=== PATIENT | male | born 1955 | race Caucasian/White ===

== ENCOUNTER → 2016-05-28 | Outpatient (CLI) | payer OTHER ==
[~2016-05-28] MED LIST: REGADENOSON 0.4 MG/5 ML SYRINGE IV ONE
--- NOTE | 2016-05-28 09:27 | US ---
EXAMINATION TYPE: US venous doppler duplex LE LT DATE OF EXAM: 05/28/2016 8:44 AM COMPARISON: NONE CLINICAL HISTORY: 60-year-old male I82.52 chronic thromboembolic disease. Patient on blood thinner, p ain and edema left leg, history of left leg bypass surgery SIDE PERFORMED: left TECHNIQUE: The lower extremity deep venous system is examined utilizing real time linear array sonog farideh with graded compression, doppler sonography and color-flow sonography. FINDINGS: VESSELS IMAGED: External Iliac Vein (EIV) Common Femoral Vein Deep Femoral Vein Greater Saphenous Vein * Femoral Vein Popliteal Vein Small Saphenous Vein * (* superficial vessels) Left Leg: No evidence of acute DVT IMPRESSION: No evidence for DVT within the left lower extremity imaged from the groin to the knee.
--- NOTE | 2016-05-28 11:24 | EST ---
DATE OF SERVICE: 05/28/2016 AGE: 60Y SEX: M HT: 6'1" WT: 210 lbs. Protocol Nain: Other: Lexiscan Cardiolite Stage: Dur. of Exercise: *Heart Rate Blood Pressure *Rest: 59 Rest: 112/81 * *Max. Achieved: 93 Maximum BP: 139/178 85% PMHR: 136 100% PMHR: 160 *METS: INDICATIONS: Chest pain, short of breath. MEDICATIONS: CLINICAL INFORMATION: Chest pain, hypertension, shortness of breath, history of smoking 1-1/2 packs of cigarettes a day for 48 years. Resting ECG shows sinus rhythm, rate of 59 beats per minute, SD interval 0.16, QRS of 0.08, normal ST-T waves. Utilizing a standard Lexiscan protocol, Lexiscan was given IV push followed by serial EKGs without chest pain or pressure or ST segment deviations indicative of ischemia. IMPRESSION: 1. Baseline rhythm is sinus with normal SD interval, normal QRS, normal ST-T waves. 2. Negative Lexiscan Cardiolite study. 3. Nuclear scintigrams to follow from radiology department.
--- NOTE | 2016-05-28 13:01 | NM ---
EXAMINATION TYPE: NM stress lexiscan cardiolite DATE OF EXAM: 05/28/2016 11:23 AM COMPARISON: NONE HISTORY: 60-year-old male with chest pain TECHNIQUE: After the intravenous administration of 10.4 mCi Tc 99m Sestamibi - Cardiolite resting SP ECT images acquired 45 minutes post injection. The patient received 0.4mg Lexiscan, 27.3 mCi Tc 99m Sestamibi - Stress images obtained [address] injection FINDINGS: Review of stress and rest SPECT images demonstrates a small fixed defect along the cardiac apex. Perf usion abnormality is larger on the rest images with defect extending to involve the mid to apical inf erior wall. This suggests attenuation artifact. No suspicious reversibility is seen. Gated analysis s hows estimated left ventricular ejection fraction of 57 %. T I D is calculated at 0.97, within normal limits. IMPRESSION: Possible small old infarct along the cardiac apex. There is prominent attenuation artifact along the inferior wall as the perfusion abnormality is more pronounced on rest images. No definite suspicious areas of reversibility seen.
== END | disposition home or self-care (01) ==
LOC: RADUSMAIN 08:07
PROVIDERS: ATTEND Family Medicine
DX: R91.8 Other nonspecific abnormal finding of lung field (principal); I82.522 Chronic embolism and thrombosis of left iliac vein; R07.9 Chest pain, unspecified
CPT/HCPCS: 93017; 93971; 78452; A9500; J2785

== ENCOUNTER → 2016-07-26 | Outpatient (CLI) | payer OTHER ==
--- NOTE | 2016-07-26 14:00 | XR ---
EXAMINATION TYPE: XR chest 2V DATE OF EXAM: 07/26/2016 COMPARISON: Chest x-ray December 22, 2011 HISTORY: Cough for 3 years. TECHNIQUE: Frontal and lateral views of the chest are obtained. FINDINGS: Underlying emphysematous change with scattered scarring is present. There is no focal air space opacity, pleural effusion, or pneumothorax seen. The cardiac silhouette size is within normal limits. Anterior fusion plate lower cervical spine is seen. IMPRESSION: Chronic changes without suspicious acute infiltrate.
== END | disposition home or self-care (01) ==
LOC: RADXRMAIN 13:42
PROVIDERS: ATTEND Physician Assistant
DX: J98.4 Other disorders of lung (principal); R05 Cough
CPT/HCPCS: 71020

== ENCOUNTER → 2018-03-03 | Outpatient (CLI) | payer OTHER ==
--- NOTE | 2018-03-03 12:37 | CT ---
EXAMINATION TYPE: CT chest w con DATE OF EXAM: 03/03/2018 COMPARISON: None HISTORY: COPD. CT DLP: 584 mGycm, Automated exposure control for dose reduction was used. CONTRAST: Performed injected with 100ml mL of Isovue 300. TECHNIQUE: Axial images were obtained at 5 mm thick sections. Reconstructed images are reviewed on [employer] computer in the coronal plane. FINDINGS: Portion of the thyroid visualized is normal. No suspicious lung nodules or focal infiltrates are present. Emphysematous changes are present especi ally through the upper lung long compatible with moderate emphysematous change. Some paraseptal emp hysematous change and/or pulmonary fibrosis may be present within the dependent portions of the lungs posteriorly. No enlarged mediastinal or hilar adenopathy is evident. There are a few shoddy lymph nodes present. The ascending aorta diameter at the level of the main pulmonary artery is 3.4 cm. The main pulmonar y artery diameter at the bifurcation is 2.2 cm. Some mild coronary artery calcification is not exclud ed. Limited CT sections are obtained through the upper abdomen. A 0.8 cm hypodensity is within the medial left lobe liver too small to classify. IMPRESSIONS: 1. Findings compatible COPD.
== END | disposition home or self-care (01) ==
LOC: RADCTMAIN 11:44
PROVIDERS: ATTEND Family Medicine
DX: J44.9 Chronic obstructive pulmonary disease, unspecified (principal)
CPT/HCPCS: 71260; Q9967

== ENCOUNTER 2018-03-15 11:22 | Observation (INO) | payer OTHER ==
[2018-03-15] MEDS ORDERED: ALBUTEROL NEBULIZED 2.5 MG/3 ML INHALATION STA (11:32)
[2018-03-15] MEDS ORDERED: methylPREDNISolone SOD SUCCI 125 MG/2 ML VIAL IV STA (11:32)
[2018-03-15] MEDS ORDERED: IPRATROPIUM 0.5 MG/2.5 ML NEBU INHALATION STA (11:32)
--- NOTE | 2018-03-15 11:37 | ED ---
General Adult HPI - General Chief complaint: Shortness of Breath Stated complaint: SOB,LICHA Time Seen by Provider: 03/15/18 11:26 Source: patient, EMS, RN notes reviewed, old records reviewed Mode of arrival: EMS Limitations: physical limitation - History of Present Illness Initial comments: 62-year-old male history of COPD presenting with worsening cough and dyspnea. Patient states his cough is productive of yellow sputum. He states he's had subjective fever and chills over the past one week. His dyspnea has worsened over the course of one week as well. He has had some intermittent chest pain, worse with cough. He has remote history of DVT and pulmonary embolism and is currently on Coumadin. Denies any lower extremity swelling. Denies central radiating chest pain. Denies nausea vomiting or diarrhea. - Related Data Home Medications Medication Instructions Recorded Confirmed Simvastatin 20 mg PO HS 04/22/14 03/15/18 Warfarin Sodium 4 mg PO DAILY 04/22/14 03/15/18 Warfarin Sodium 5 mg PO DAILY 04/22/14 03/15/18 Albuterol Inhaler [Ventolin Hfa 1 - 2 puff INHALATION RT-Q6H PRN 09/15/15 Inhaler] Gabapentin [Neurontin] 800 mg PO TID 09/15/15 03/15/18 DULoxetine HCL [Cymbalta] 30 mg PO DAILY 03/15/18 03/15/18 hydrOXYzine HCL 10 mg PO HS PRN 03/15/18 03/15/18 oxyCODONE HCL/ACETAMINOPHEN 1 tab PO QID 03/15/18 03/15/18 [Percocet 10-325 mg] Allergies Allergy/AdvReac Type Severity Reaction Status Date / Time No Known Allergies Allergy Verified 03/15/18 11:48 Review of Systems ROS Statement: Those systems with pertinent positive or pertinent negative responses have been documented in the HPI. ROS Other: All systems not noted in ROS Statement are negative. Past Medical History Past Medical History: COPD, Deep Vein Thrombosis (DVT), Hyperlipidemia, Vascular Disorder Additional Past Medical History / Comment(s): HX DVT left leg. History of Any Multi-Drug Resistant Organisms: None Reported Past Surgical History: Ear Surgery, Orthopedic Surgery Additional Past Surgical History / Comment(s): LT EAR SURG; RT KNEE SURG; DRAKE CATARACTS. CERVICAL AND SPINAL FUSIONS. FEM-POP BYPASS LT LEG X2. Past Anesthesia/Blood Transfusion Reactions: No Reported Reaction Past Psychological History: Anxiety, Depression Smoking Status: Current every day smoker Past Alcohol Use History: None Reported Past Drug Use History: None Reported - Past Family History Mother Family Medical History: Cancer Additional Family Medical History / Comment(s): UTERINE CANCER General Exam Limitations: physical limitation General appearance: alert, in no apparent distress Head exam: Present: atraumatic, normocephalic Eye exam: Present: normal appearance, PERRL ENT exam: Present: normal exam Neck exam: Present: normal inspection. Absent: tenderness, meningismus Respiratory exam: Present: wheezes, decreased breath sounds, prolonged expiratory Cardiovascular Exam: Present: regular rate, normal rhythm GI/Abdominal exam: Present: soft. Absent: distended, tenderness Extremities exam: Present: normal inspection, normal capillary refill. Absent: pedal edema, calf tenderness Neurological exam: Present: alert, oriented X3, CN II-XII intact. Absent: motor sensory deficit Psychiatric exam: Present: normal affect, normal mood Skin exam: Present: warm, dry, intact. Absent: cyanosis, diaphoretic Course Vital Signs 03/15/18 03/15/18 03/15/18 11:23 11:53 12:10 Temperature 98.1 F Pulse Rate 55 L 53 L 56 L Respiratory 18 Rate Blood Pressure 120/87 O2 Sat by Pulse 96 Oximetry 03/15/18 12:11 Temperature Pulse Rate 70 Respiratory 18 Rate Blood Pressure 122/69 O2 Sat by Pulse 97 Oximetry EKG Findings - EKG Comments: EKG Findings:: EKG: Sinus bradycardia, rate 55, NH interval 144 QRS duration 82 , QTC 449, no ST segment elevation Medical Decision Making - Medical Decision Making 62-year-old male history COPD, presenting with cough and dyspnea for one week. Chest x-ray obtained, shows hyperinflation consistent with COPD, no focal pneumonia. CT was reviewed from one week ago, showed no acute cardiopulmonary process. Normal white blood cell count, stable hemoglobin, INR is 4.6, Coumadin will be held. Troponin and BNP are negative. Case discussed with Dr. Henson, admitted for COPD exacerbation. - Lab Data Result diagrams: 03/15/18 11:30 03/15/18 11:30 Lab Results 03/15/18 03/15/18 03/15/18 Range/Units 11:30 11:30 11:30 WBC 6.4 (3.8-10.6) k/uL RBC 4.20 L (4.30-5.90) m/uL Hgb 13.4 (13.0-17.5) gm/dL Hct 40.4 (39.0-53.0) % MCV 96.1 (80.0-100.0) fL MCH 32.0 (25.0-35.0) pg MCHC 33.3 (31.0-37.0) g/dL RDW 13.4 (11.5-15.5) % Plt Count 155 (150-450) k/uL Neutrophils % 57 % Lymphocytes % 33 % Monocytes % 6 % Eosinophils % 1 % Basophils % 0 % Neutrophils # 3.7 (1.3-7.7) k/uL Lymphocytes # 2.1 (1.0-4.8) k/uL Monocytes # 0.4 (0-1.0) k/uL Eosinophils # 0.1 (0-0.7) k/uL Basophils # 0.0 (0-0.2) k/uL PT (9.0-12.0) sec INR (<1.2) APTT (22.0-30.0) sec Sodium 141 (137-145) mmol/L Potassium 3.7 (3.5-5.1) mmol/L Chloride 108 H (98-107) mmol/L Carbon Dioxide 25 (22-30) mmol/L Anion Gap 8 mmol/L BUN 21 H (9-20) mg/dL Creatinine 0.78 (0.66-1.25) mg/dL Est GFR (CKD-EPI)AfAm >90 (>60 ml/min/1.73 sqM) Est GFR (CKD-EPI)NonAf >90 (>60 ml/min/1.73 sqM) Glucose 103 H (74-99) mg/dL Plasma Lactic Acid Robin (0.7-2.0) mmol/L Calcium 8.4 (8.4-10.2) mg/dL Magnesium 2.3 (1.6-2.3) mg/dL Total Bilirubin 1.0 (0.2-1.3) mg/dL AST 28 (17-59) U/L ALT 27 (21-72) U/L Alkaline Phosphatase 55 (38-126) U/L Total Creatine Kinase 344 H (55-170) U/L CK-MB (CK-2) 0.9 (0.0-2.4) ng/mL CK-MB (CK-2) Rel Index 0.3 Troponin I <0.012 (0.000-0.034) ng/mL NT-Pro-B Natriuret Pep pg/mL Total Protein 6.6 (6.3-8.2) g/dL Albumin 3.7 (3.5-5.0) g/dL 03/15/18 03/15/18 03/15/18 Range/Units 11:30 11:30 11:30 WBC (3.8-10.6) k/uL RBC (4.30-5.90) m/uL Hgb (13.0-17.5) gm/dL Hct (39.0-53.0) % MCV (80.0-100.0) fL MCH (25.0-35.0) pg MCHC (31.0-37.0) g/dL RDW (11.5-15.5) % Plt Count (150-450) k/uL Neutrophils % % Lymphocytes % % Monocytes % % Eosinophils % % Basophils % % Neutrophils # (1.3-7.7) k/uL Lymphocytes # (1.0-4.8) k/uL Monocytes # (0-1.0) k/uL Eosinophils # (0-0.7) k/uL Basophils # (0-0.2) k/uL PT 44.6 H (9.0-12.0) sec INR 4.6 H (<1.2) APTT 40.7 H (22.0-30.0) sec Sodium (137-145) mmol/L Potassium (3.5-5.1) mmol/L Chloride (98-107) mmol/L Carbon Dioxide (22-30) mmol/L Anion Gap mmol/L BUN (9-20) mg/dL Creatinine (0.66-1.25) mg/dL Est GFR (CKD-EPI)AfAm (>60 ml/min/1.73 sqM) Est GFR (CKD-EPI)NonAf (>60 ml/min/1.73 sqM) Glucose (74-99) mg/dL Plasma Lactic Acid Robin 1.6 (0.7-2.0) mmol/L Calcium (8.4-10.2) mg/dL Magnesium (1.6-2.3) mg/dL Total Bilirubin (0.2-1.3) mg/dL AST (17-59) U/L ALT (21-72) U/L Alkaline Phosphatase (38-126) U/L Total Creatine Kinase (55-170) U/L CK-MB (CK-2) (0.0-2.4) ng/mL CK-MB (CK-2) Rel Index Troponin I (0.000-0.034) ng/mL NT-Pro-B Natriuret Pep 169 pg/mL Total Protein (6.3-8.2) g/dL Albumin (3.5-5.0) g/dL Disposition Clinical Impression: Acute exacerbation of chronic obstructive airways disease Disposition: ADMITTED IP TO THIS HOSP Condition: Stable Is patient prescribed a controlled substance at d/c from ED?: No Referrals: Mariluz Rainey DO [Primary Care Provider] - 1-2 days Decision to Admit Reason: Admit from EC Decision Date: 03/15/18 Decision Time: 13:25
[2018-03-15 11:53] LABS: Basophils % (A) 0 %; Eosinophils # (A) 0.1 k/uL (0-0.7); Eosinophils % (A) 1 %; HCT 40.4 % (39.0-53.0); HGB 13.4 gm/dL (13.0-17.5); Lymphocytes # (A) 2.1 k/uL (1.0-4.8); Lymphocytes % (A) 33 %; MCHC 33.3 g/dL (31.0-37.0); MCV 96.1 fL (80.0-100.0); Mean Platelet Volume 9.1; Monocytes # (A) 0.4 k/uL (0-1.0); Monocytes % (A) 6 %; Neutrophils # (A) 3.7 k/uL (1.3-7.7); Neutrophils % (A) 57 %; Platelet Count 155 k/uL (150-450); RDW 13.4 % (11.5-15.5); WBC 6.4 k/uL (3.8-10.6)
[2018-03-15 12:03] LABS: ALT 27 U/L (21-72); AST 28 U/L (17-59); Albumin 3.7 g/dL (3.5-5.0); Alkaline Phosphatase 55 U/L (38-126); Anion Gap 8 mmol/L; Blood Urea Nitrogen 21 mg/dL (9-20); Calcium 8.4 mg/dL (8.4-10.2); Carbon Dioxide 25 mmol/L (22-30); Chloride 108 mmol/L (98-107); Glucose 103 mg/dL (74-99); Magnesium 2.3 mg/dL (1.6-2.3); Potassium 3.7 mmol/L (3.5-5.1); Sodium 141 mmol/L (137-145); Total Protein 6.6 g/dL (6.3-8.2)
[2018-03-15 12:14] LABS: Creatine Kinase 344 U/L (55-170)
[2018-03-15 12:17] LABS: INR 4.6 (<1.2); Partial Thromboplastin Time 40.7 sec (22.0-30.0); Prothrombin Time 44.6 sec (9.0-12.0)
--- NOTE | 2018-03-15 12:26 | XR ---
EXAMINATION TYPE: XR chest 2V DATE OF EXAM: 03/15/2018 COMPARISON: 07/26/2016 HISTORY: Shortness of breath TECHNIQUE: Frontal and lateral views of the chest are obtained. FINDINGS: Scattered senescent parenchymal changes noted. Hyperinflation compatible with COPD. Upper lobe emphys ematous changes noted. No evidence for infiltrate. No evidence for atelectasis. Heart size is stable. Mediastinal structures are stable and grossly unremarkable. No evidence for hilar prominence. Degenerative changes dorsal spine. IMPRESSION: 1. No evidence for acute pulmonary disease.
[2018-03-15 12:27] LABS: Creatine Kinase MB 0.9 ng/mL (0.0-2.4); Troponin I <0.012 ng/mL (0.000-0.034)
[2018-03-15] MEDS ORDERED: IPRATROPIUM-ALBUTEROL 3 ML NEB INHALATION PRN (13:19)
[2018-03-15] MEDS ORDERED: GABAPENTIN 400 MG CAP PO STA (13:39)
[2018-03-15] MEDS ORDERED: oxyCODONE-APAP 5-325MG 1 EACH TAB PO STA (13:39)
[2018-03-15] MEDS: AZITHROMYCIN 500 MG TAB PO SCH (14:24)
--- NOTE | 2018-03-15 15:02 | P.HPIM ---
History of Present Illness H&P Date: 03/15/18 Felice Chang, he is a 62-year-old male patient of Dr. Mariluz Rainey who presented to [facility] emergency room with a chief complaint of worsening shortness of breath. Patient stated that about 1 week ago he developed an upper respiratory infection, he stayed in bed and try to medicate himself, he developed worsening cough with yellow sputum production, and started having worsening shortness of breath, he decided to see Dr. Rainey today however his shortness of breath worsened and he decided to come to emergency room. Patient was also complaining of chest tightness. Patient states that he has a known history of COPD for which she uses an inhaler , he is a lifelong smoker, he states that he has not seen any lung doctor in the past, he has known history of DVT and pulmonary embolism in the past, he is maintained on Coumadin, his INR was elevated at 4.6 at the time of admission. He denies any cardiac history in the past no history of myocardial infarction or congestive heart. He denies any previous history of diabetes kidney disease or liver disease. He denies drinking alcohol or using any kind of illicit drugs. Past Medical History Past Medical History: COPD, Deep Vein Thrombosis (DVT), Hyperlipidemia, Vascular Disorder Additional Past Medical History / Comment(s): HX DVT left leg. History of Any Multi-Drug Resistant Organisms: None Reported Past Surgical History: Ear Surgery, Orthopedic Surgery Additional Past Surgical History / Comment(s): LT EAR SURG; RT KNEE SURG; DRAKE CATARACTS. CERVICAL AND SPINAL FUSIONS. FEM-POP BYPASS LT LEG X2. Past Anesthesia/Blood Transfusion Reactions: No Reported Reaction Past Psychological History: Anxiety, Depression Smoking Status: Current every day smoker Past Alcohol Use History: None Reported Past Drug Use History: None Reported - Past Family History Mother Family Medical History: Cancer Additional Family Medical History / Comment(s): UTERINE CANCER Medications and Allergies Home Medications Medication Instructions Recorded Confirmed Type Simvastatin 20 mg PO HS 04/22/14 03/15/18 History Warfarin Sodium 4 mg PO DAILY 04/22/14 03/15/18 History Warfarin Sodium 5 mg PO DAILY 04/22/14 03/15/18 History Albuterol Inhaler [Ventolin Hfa 1 - 2 puff INHALATION RT-Q6H PRN 09/15/15 History Inhaler] Gabapentin [Neurontin] 800 mg PO TID 09/15/15 03/15/18 History DULoxetine HCL [Cymbalta] 30 mg PO DAILY 03/15/18 03/15/18 History hydrOXYzine HCL 10 mg PO HS PRN 03/15/18 03/15/18 History oxyCODONE HCL/ACETAMINOPHEN 1 tab PO QID 03/15/18 03/15/18 History [Percocet 10-325 mg] Allergies Allergy/AdvReac Type Severity Reaction Status Date / Time No Known Allergies Allergy Verified 03/15/18 11:48 Physical Exam Vitals: Vital Signs Temp Pulse Resp BP Pulse Ox 03/15/18 14:25 66 18 125/74 97 03/15/18 13:34 97.8 F 65 20 130/81 96 03/15/18 12:11 70 18 122/69 97 03/15/18 12:10 56 L 03/15/18 11:53 53 L 03/15/18 11:23 98.1 F 55 L 18 120/87 96 Intake and Output 03/14/18 03/15/18 03/15/18 22:59 06:59 14:59 Other: Weight 86.183 kg In general patient is alert and oriented 3 in no apparent distress HEENT head normocephalic and atraumatic Neck is supple no JVD no goiter no lymphadenopathy Chest exam reveals a scattered crackles bilaterally, with mild wheezing and prolonged expiratory phase Cardiac exam reveals regular heart sounds S1 and S2 no gallops no murmurs Abdomen is soft nontender no organomegaly with normal bowel sounds Extremity exam reveals no edema no cyanosis or clubbing Neurological examination reveals no focal deficit Results CBC & Chem 7: 03/15/18 11:30 03/15/18 11:30 Labs: Abnormal Lab Results - Last 24 Hours (Table) 03/15/18 03/15/18 03/15/18 Range/Units 11:30 11:30 11:30 RBC 4.20 L (4.30-5.90) m/uL PT (9.0-12.0) sec INR (<1.2) APTT (22.0-30.0) sec Chloride 108 H (98-107) mmol/L BUN 21 H (9-20) mg/dL Glucose 103 H (74-99) mg/dL Total Creatine Kinase 344 H (55-170) U/L 03/15/18 Range/Units 11:30 RBC (4.30-5.90) m/uL PT 44.6 H (9.0-12.0) sec INR 4.6 H (<1.2) APTT 40.7 H (22.0-30.0) sec Chloride (98-107) mmol/L BUN (9-20) mg/dL Glucose (74-99) mg/dL Total Creatine Kinase (55-170) U/L Assessment and Plan Plan: #1 acute exacerbation of chronic obstructive pulmonary disease #2 acute purulent bronchitis #3 episodes of chest tightness, with normal EKG and normal first troponin #4 underlying history of degenerative disc disease was previous history of back surgery maintained on narcotic for pain management #5 underlying history of hyperlipidemia #6 previous history of DVT and PE patient is maintained on Coumadin his INR is elevated at 4.6 #7 tobacco abuse patient was counseled regarding smoking cessation counseling 1- 3 minutes #8 underlying history of peripheral vascular disease with previous history of left lower extremity femoral popliteal bypass graft surgery At this time patient will be admitted to telemetry floor Will consult pulmonary , consult cardiology [place] [facility] [place] levels Prognosis is guarded, will follow closely
[2018-03-15] MEDS ORDERED: PNEUMOCOCCAL VACC-PNEUMOVAX 23 25 MCG/0.5 ML VIAL IM ONE (15:06)
[2018-03-15] MEDS: IPRATROPIUM-ALBUTEROL 3 ML NEB INHALATION SCH ×2 (15:33→21:33)
[2018-03-15] MEDS: methylPREDNISolone SOD SUCCI 125 MG/2 ML VIAL IV SCH ×2 (17:58→23:42)
[2018-03-15] MEDS ORDERED: hydrOXYzine HCL 10 MG TAB PO PRN (19:44)
[2018-03-15] MEDS: ATORVASTATIN 10 MG TAB PO SCH (20:48)
[2018-03-15] MEDS: guaiFENesin 600 MG TABLET.ER PO SCH (20:50)
[2018-03-15] MEDS: oxyCODONE-APAP 10-325MG 1 EACH TAB PO PRN (20:50)
[2018-03-15] MEDS: GABAPENTIN 400 MG CAP PO SCH (20:50)
[2018-03-15] MEDS ORDERED: ALBUTEROL NEBULIZED 2.5 MG/3 ML INHALATION PRN (21:00)
[2018-03-16] MEDS: oxyCODONE-APAP 10-325MG 1 EACH TAB PO PRN ×4 (03:27→21:15)
[2018-03-16] MEDS: methylPREDNISolone SOD SUCCI 125 MG/2 ML VIAL IV SCH ×3 (05:47→18:52)
[2018-03-16 08:04] LABS: Basophils % (A) 0 %; Eosinophils % (A) 0 %; HCT 37.7 % (39.0-53.0); HGB 12.3 gm/dL (13.0-17.5); Lymphocytes # (A) 0.9 k/uL (1.0-4.8); Lymphocytes % (A) 11 %; MCH 31.8 pg (25.0-35.0); MCHC 32.6 g/dL (31.0-37.0); MCV 97.3 fL (80.0-100.0); Mean Platelet Volume 9.3; Monocytes # (A) 0.3 k/uL (0-1.0); Monocytes % (A) 4 %; Neutrophils # (A) 6.7 k/uL (1.3-7.7); Neutrophils % (A) 84 %; Platelet Count 175 k/uL (150-450); RBC 3.87 m/uL (4.30-5.90); RDW 13.5 % (11.5-15.5)
[2018-03-16 08:08] LABS: INR 4.4 (<1.2); Prothrombin Time 42.5 sec (9.0-12.0)
[2018-03-16] MEDS ORDERED: cefTRIAXone 1 GM VIAL ONE (08:12)
[2018-03-16] MEDS ORDERED: SODIUM CHLORIDE 0.9% 50 ML BAG ONE (08:12)
[2018-03-16 08:35] LABS: ALT 17 U/L (21-72); AST 23 U/L (17-59); Albumin 3.5 g/dL (3.5-5.0); Alkaline Phosphatase 51 U/L (38-126); Anion Gap 11 mmol/L; Blood Urea Nitrogen 15 mg/dL (9-20); Calcium 8.6 mg/dL (8.4-10.2); Carbon Dioxide 23 mmol/L (22-30); Chloride 104 mmol/L (98-107); Glucose 210 mg/dL (74-99); Potassium 3.6 mmol/L (3.5-5.1); Sodium 138 mmol/L (137-145); Total Bilirubin 0.5 mg/dL (0.2-1.3); Total Protein 6.2 g/dL (6.3-8.2)
[2018-03-16] MEDS: IPRATROPIUM-ALBUTEROL 3 ML NEB INHALATION SCH ×4 (09:08→20:27)
[2018-03-16] MEDS: GABAPENTIN 400 MG CAP PO SCH ×3 (09:51→21:15)
[2018-03-16] MEDS: AZITHROMYCIN 500 MG TAB PO SCH (10:05)
[2018-03-16] MEDS: DULoxetine HCL 30 MG CAPSULE.DR PO SCH (10:06)
[2018-03-16] MEDS: guaiFENesin 600 MG TABLET.ER PO SCH ×2 (10:09→21:14)
--- NOTE | 2018-03-16 10:35 | P.PN ---
Subjective Progress Note Date: 03/16/18 Felice Chang, he is a 62-year-old male patient of Dr. Mariluz Rainey who presented to [facility] emergency room with a chief complaint of worsening shortness of breath. Patient stated that about 1 week ago he developed an upper respiratory infection, he stayed in bed and try to medicate himself, he developed worsening cough with yellow sputum production, and started having worsening shortness of breath, he decided to see Dr. Rainey today however his shortness of breath worsened and he decided to come to emergency room. Patient was also complaining of chest tightness. Patient states that he has a known history of COPD for which she uses an inhaler , he is a lifelong smoker, he states that he has not seen any lung doctor in the past, he has known history of DVT and pulmonary embolism in the past, he is maintained on Coumadin, his INR was elevated at 4.6 at the time of admission. He denies any cardiac history in the past no history of myocardial infarction or congestive heart. He denies any previous history of diabetes kidney disease or liver disease. He denies drinking alcohol or using any kind of illicit drugs. 03/16/2017 patient is alert and oriented 3. Patient does state improvement with shortness of breath from yesterday. At this time patient is still having cough that is nonproductive. Patient denies nausea or vomiting. Patient denies chest pain. Patient denies any urinary burning or frequency. Pulmonary and cardiology services are following. Objective - Vital Signs Vital signs: Vital Signs Temp 97.6 F 03/16/18 08:41 Pulse 62 03/16/18 09:24 Resp 16 03/16/18 08:41 BP 123/72 03/16/18 08:41 Pulse Ox 98 03/16/18 08:41 Intake & Output 03/15/18 03/16/18 03/16/18 18:59 06:59 18:59 Intake Total 660 Balance 660 Weight 86.183 kg Intake: Oral 660 Other: # Voids 2 - Exam In general patient is alert and oriented 3 in no apparent distress HEENT head normocephalic and atraumatic Neck is supple no JVD no goiter no lymphadenopathy Chest exam reveals a scattered crackles bilaterally, with mild wheezing and prolonged expiratory phase Cardiac exam reveals regular heart sounds S1 and S2 no gallops no murmurs Abdomen is soft nontender no organomegaly with normal bowel sounds Extremity exam reveals no edema no cyanosis or clubbing Neurological examination reveals no focal deficit - Labs CBC & Chem 7: 03/16/18 07:12 03/16/18 07:12 Labs: Abnormal Lab Results - Last 24 Hours (Table) 03/15/18 03/15/18 03/15/18 Range/Units 11:30 11:30 11:30 RBC 4.20 L (4.30-5.90) m/uL Hgb (13.0-17.5) gm/dL Hct (39.0-53.0) % Lymphocytes # (1.0-4.8) k/uL PT (9.0-12.0) sec INR (<1.2) APTT (22.0-30.0) sec Chloride 108 H (98-107) mmol/L BUN 21 H (9-20) mg/dL Glucose 103 H (74-99) mg/dL ALT (21-72) U/L Total Creatine Kinase 344 H (55-170) U/L Total Protein (6.3-8.2) g/dL 03/15/18 03/16/18 03/16/18 Range/Units 11:30 07:12 07:12 RBC 3.87 L (4.30-5.90) m/uL Hgb 12.3 L (13.0-17.5) gm/dL Hct 37.7 L (39.0-53.0) % Lymphocytes # 0.9 L (1.0-4.8) k/uL PT 44.6 H 42.5 H (9.0-12.0) sec INR 4.6 H 4.4 H (<1.2) APTT 40.7 H (22.0-30.0) sec Chloride (98-107) mmol/L BUN (9-20) mg/dL Glucose (74-99) mg/dL ALT (21-72) U/L Total Creatine Kinase (55-170) U/L Total Protein (6.3-8.2) g/dL 03/16/18 Range/Units 07:12 RBC (4.30-5.90) m/uL Hgb (13.0-17.5) gm/dL Hct (39.0-53.0) % Lymphocytes # (1.0-4.8) k/uL PT (9.0-12.0) sec INR (<1.2) APTT (22.0-30.0) sec Chloride (98-107) mmol/L BUN (9-20) mg/dL Glucose 210 H (74-99) mg/dL ALT 17 L (21-72) U/L Total Creatine Kinase (55-170) U/L Total Protein 6.2 L (6.3-8.2) g/dL Assessment and Plan Assessment: #1 acute exacerbation of chronic obstructive pulmonary disease #2 acute purulent bronchitis #3 episodes of chest tightness, with normal EKG and normal first troponin #4 underlying history of degenerative disc disease was previous history of back surgery maintained on narcotic for pain management #5 underlying history of hyperlipidemia #6 previous history of DVT and PE patient is maintained on Coumadin his INR is elevated at 4.6 #7 tobacco abuse patient was counseled regarding smoking cessation counseling 1- 3 minutes #8 underlying history of peripheral vascular disease with previous history of left lower extremity femoral popliteal bypass graft surgery Patient currently on Rocephin and azithromycin. IV Solu-Medrol, DuoNeb breathing treatments and Mucinex. Cardiology and pulmonary service is consulted INR remains elevated at 4.4. Coumadin currently on hold
[2018-03-16 11:32] LABS: Glucose,Whole Blood 247 mg/dL (75-99)
--- NOTE | 2018-03-16 11:51 | P.CRDCN ---
History of Present Illness History of present illness: This is a pleasant 62-year-old male past medical history significant for COPD, DVT on long-term anticoagulation, dyslipidemia, chronic nicotine dependence and peripheral vascular disease. He denies history of hypertension, diabetes mellitus or coronary artery disease. We have been asked to see him in consultation for chest pain. He presented to the hospital yesterday morning with symptoms of shortness of breath and productive cough times one week. He states he is bringing up significant amount of yellow sputum. He also describes pleuritic chest discomfort when he coughs or takes a deep breath. He denies exertional chest discomfort, palpitations or dizziness. He denies radiation of the pain to his back, neck, jaw or arm. He is seen and examined laying flat resting comfortably in bed in no acute distress. He has been diagnosed with an acute exacerbation of chronic COPD started on antibiotics, nebulizers and IV steroids. EKG reveals sinus bradycardia heart rate [address] or T wave abnormalities noted. Chest x-ray is negative for an acute cardiopulmonary process. Hyperinflation compatible with COPD noted. Upper lobe emphysematous changes. Laboratory data reviewed, WBC 8.0, hemoglobin 12.3, platelets 175, INR 4.6 on admission 4.4 this morning, sodium 138, potassium 3.6, creatinine 0.73, magnesium 2.3, cardiac enzymes negative 3, NT proBNP 169. Current cardiac medications include simvastatin 20 mg daily and Coumadin 4 mg Tuesday and 2.5 mg Tuesday. He underwent a Lexiscan stress test May 2016 revealed ejection fraction 57% with a prominent attenuation artifact along the inferior wall with no definitive suspicious areas of reversibility. At the time of my exam: CONSTITUTIONAL: Denies fever. Denies chills. EYES: Denies blurred vision. Denies vision changes. Denies eye pain. EARS, NOSE, MOUTH & THROAT: Denies headache. Denies sore throat. Denies ear pain. CARDIOVASCULAR: Denies chest pain. Denies shortness of breath. Denies orthopnea. Denies PND. Denies palpitations. RESPIRATORY: Complains of cough. GASTROINTESTINAL: Denies abdominal pain. Denies diarrhea. Denies constipation. Denies nausea. Denies vomiting. MUSCULOSKELETAL: Denies myalgias. INTEGUMENTARY: Denies pruitis. Denies rash. NEUROLOGIC: Denies numbness. Denies tingling. Denies weakness. PSYCHIATRIC: Denies anxiety. Denies depression. ENDOCRINE: Denies fatigue. Denies weight change. Denies polydipsia. Denies polyurina. GENITOURINARY: Denies burning, hematuria or urgency with micturation. HEMATOLOGIC: Denies history of anemia. Denies bleeding. Blood pressure 118/61 heart rate 63 afebrile maintaining oxygen saturation on room air GENERAL: This is a 62-year-old male in no apparent distress at the time of my examination. HEENT: Head is atraumatic, normocephalic. Pupils are equal, round. Sclerae anicteric. Conjunctivae are clear. Mucous membranes of the mouth are moist. Neck is supple. There is no jugular venous distention. No carotid bruit is heard. LUNGS: Clear to auscultation no wheezes, rales or rhonchi. No chest wall tenderness is noted on palpation or with deep breathing. Diminished bilaterally. HEART: Regular rate and rhythm without murmurs, rubs or gallops. S1 and S2 heard. ABDOMEN: Soft, nontender. Bowel sounds are heard. No organomegaly noted. EXTREMITIES: No evidence of peripheral edema and no calf tenderness noted. VASCULAR: Radial and dorsalis pedis pulses palpated, no evidence of clubbing. NEUROLOGIC: Patient is awake, alert and oriented x3. ASSESSMENT Pleuritic chest pain. Atypical for angina. An acute coronary event has been ruled out with no EKG evidence of ischemia negative cardiac enzymes. Acute exacerbation of chronic COPD Dyslipidemia History of DVT on long-term anticoagulation with Coumadin Supratherapeutic INR Chronic nicotine dependence PLAN An acute coronary event has been ruled out. Obtain 2-D echocardiogram and Doppler study to assess cardiac structure and function. If there is normal LV size and function with no evidence of wall motion abnormalities he is stable from a cardiac perspective. Hold Coumadin for supratherapeutic INR. Clinically there is no evidence of heart failure. Ongoing medical management of acute exacerbation of COPD. Smoking cessation recommended. Thank you kindly for this consultation. The above impression and plan of care have been discussed and directed by the signing physician. Verónica Francis, nurse practitioner, acting as scribe for signing physician. Past Medical History Past Medical History: COPD, Deep Vein Thrombosis (DVT), Hyperlipidemia, Vascular Disorder Additional Past Medical History / Comment(s): HX DVT left leg. History of Any Multi-Drug Resistant Organisms: None Reported Past Surgical History: Ear Surgery, Orthopedic Surgery Additional Past Surgical History / Comment(s): LT EAR SURG; RT KNEE SURG; DRAKE CATARACTS. CERVICAL AND SPINAL FUSIONS. FEM-POP BYPASS LT LEG X2. Past Anesthesia/Blood Transfusion Reactions: No Reported Reaction Past Psychological History: Anxiety, Depression Smoking Status: Current every day smoker Past Alcohol Use History: None Reported Past Drug Use History: None Reported - Past Family History Mother Family Medical History: Cancer Additional Family Medical History / Comment(s): UTERINE CANCER Father Family Medical History: Pneumonia Additional Family Medical History / Comment(s): Gastric ulcer Medications and Allergies Home Medications Medication Instructions Recorded Confirmed Type Simvastatin 20 mg PO HS 04/22/14 03/15/18 History Warfarin Sodium 2.5 mg PO SUFRSA 04/22/14 03/15/18 History Warfarin Sodium 4 mg PO MOTUWETH 04/22/14 03/15/18 History Albuterol Inhaler [Ventolin Hfa 1 - 2 puff INHALATION RT-Q6H PRN 09/15/15 History Inhaler] Gabapentin [Neurontin] 800 mg PO TID 09/15/15 03/15/18 History DULoxetine HCL [Cymbalta] 30 mg PO DAILY 03/15/18 03/15/18 History hydrOXYzine HCL 10 mg PO HS PRN 03/15/18 03/15/18 History oxyCODONE HCL/ACETAMINOPHEN 1 tab PO QID 03/15/18 03/15/18 History [Percocet 10-325 mg] Allergies Allergy/AdvReac Type Severity Reaction Status Date / Time No Known Allergies Allergy Verified 03/15/18 11:48 Physical Exam Vitals: Vital Signs Temp Pulse Pulse Resp BP BP Pulse Ox 03/16/18 11:33 97.0 F L 63 16 118/61 96 03/16/18 09:24 62 03/16/18 09:08 62 03/16/18 08:41 97.6 F 52 L 16 123/72 98 03/16/18 08:00 52 L 03/16/18 05:02 97.6 F 54 L 18 122/67 98 03/16/18 00:00 43 L 18 03/15/18 22:24 97.8 F 62 18 114/64 99 03/15/18 21:50 60 03/15/18 21:34 54 L 97 03/15/18 17:11 98 F 16 123/65 98 03/15/18 16:13 98.5 F 75 18 113/75 96 03/15/18 15:43 70 16 03/15/18 15:34 77 18 03/15/18 14:25 66 18 125/74 97 03/15/18 13:34 97.8 F 65 20 130/81 96 03/15/18 12:11 70 18 122/69 97 03/15/18 12:10 56 L 03/15/18 11:53 53 L Intake and Output 03/15/18 03/16/18 03/16/18 22:59 06:59 14:59 Intake Total 420 240 Balance 420 240 Intake: Oral 420 240 Other: # Voids 2 Results 03/16/18 07:12 03/16/18 07:12 Cardiac Enzymes 03/15/18 03/15/18 03/15/18 Range/Units 11:30 11:30 18:06 AST 28 (17-59) U/L CK-MB (CK-2) 0.9 (0.0-2.4) ng/mL Troponin I <0.012 <0.012 (0.000-0.034) ng/mL 03/15/18 03/16/18 Range/Units 23:06 07:12 AST 23 (17-59) U/L CK-MB (CK-2) (0.0-2.4) ng/mL Troponin I <0.012 (0.000-0.034) ng/mL Coagulation 03/15/18 03/16/18 Range/Units 11:30 07:12 PT 44.6 H 42.5 H (9.0-12.0) sec APTT 40.7 H (22.0-30.0) sec CBC 03/15/18 03/16/18 Range/Units 11:30 07:12 WBC 6.4 8.0 (3.8-10.6) k/uL RBC 4.20 L 3.87 L (4.30-5.90) m/uL Hgb 13.4 12.3 L (13.0-17.5) gm/dL Hct 40.4 37.7 L (39.0-53.0) % Plt Count 155 175 (150-450) k/uL Comprehensive Metabolic Panel 03/15/18 03/16/18 Range/Units 11:30 07:12 Sodium 141 138 (137-145) mmol/L Potassium 3.7 3.6 (3.5-5.1) mmol/L Chloride 108 H 104 (98-107) mmol/L Carbon Dioxide 25 23 (22-30) mmol/L BUN 21 H 15 (9-20) mg/dL Creatinine 0.78 0.73 (0.66-1.25) mg/dL Glucose 103 H 210 H (74-99) mg/dL Calcium 8.4 8.6 (8.4-10.2) mg/dL AST 28 23 (17-59) U/L ALT 27 17 L (21-72) U/L Alkaline Phosphatase 55 51 (38-126) U/L Total Protein 6.6 6.2 L (6.3-8.2) g/dL Albumin 3.7 3.5 (3.5-5.0) g/dL Current Medications Generic Name Dose Route Start Last Admin Trade Name Freq PRN Reason Stop Dose Admin Albuterol Sulfate 2.5 mg 03/15/18 21:00 Ventolin Nebulized INHALATION RT-Q6H PRN Shortness Of Breath Albuterol/Ipratropium 3 ml 03/15/18 13:19 Duoneb 0.5 Mg-3 Mg/3 Ml Soln INHALATION RT-Q4H PRN Shortness Of Breath Or Wheezing Albuterol/Ipratropium 3 ml 03/15/18 16:00 03/16/18 09:08 Duoneb 0.5 Mg-3 Mg/3 Ml Soln INHALATION 3 ml RT-QID SHERON Administration Atorvastatin Calcium 10 mg 03/15/18 21:00 03/15/18 20:48 Lipitor PO 10 mg HS SHERON Administration Azithromycin 500 mg 03/15/18 14:00 03/16/18 10:05 Zithromax PO 500 mg DAILY SHERON Administration Duloxetine HCl 30 mg 03/16/18 09:00 03/16/18 10:06 Cymbalta PO 30 mg DAILY SHERON Administration Gabapentin 800 mg 03/15/18 22:00 03/16/18 09:51 Neurontin PO 800 mg TID SHERON Administration Guaifenesin 600 mg 03/15/18 21:00 03/16/18 10:09 Mucinex PO 600 mg Q12HR SHERON Administration Hydroxyzine HCl 10 mg 03/15/18 19:44 Atarax PO HS PRN Anxiety Ceftriaxone Sodium 1,000 mg/ 50 mls @ 100 mls/hr 03/15/18 15:15 03/16/18 08: 12 Sodium Chloride IVPB 100 mls/hr Q24HR SHERON Administration Insulin Aspart 0 unit 03/16/18 12:30 Novolog SQ ACHS [facility] Protocol Methylprednisolone Sodium Succinate 60 mg 03/15/18 18:00 03/16/18 05:47 Solu-Medrol IV 60 mg Q6HR SHERON Administration Oxycodone/Acetaminophen 1 each 03/15/18 22:00 03/16/18 09:52 Percocet 10-325 PO 1 each QID PRN Administration MODERATE PAIN Intake and Output 03/15/18 03/16/18 03/16/18 22:59 06:59 14:59 Intake Total 420 240 Balance 420 240 Intake: Oral 420 240 Other: # Voids 2 03/16/18 07:12 03/16/18 07:12
[2018-03-16] MEDS: INSULIN ASPART (NovoLOG) 100 UNIT/ML VIAL SQ SCH ×3 (12:36→21:36)
--- NOTE | 2018-03-16 14:59 | P.CNPUL ---
History of Present Illness Consult date: 03/16/18 Reason for consult: dyspnea, COPD History of present illness: 62-year-old male patient with known history of COPD and addition to previous history of DVT maintained on long-term articulation with warfarin. The patient also has history of hyperlipidemia. The patient is a chronic smoker and smokes approximately 1 pack of cigarettes a day. He came into the hospital because of increased cough chest congestion and shortness of breath. No hemoptysis. No pleurisy. He was producing yellowish sputum. He hasn't are not exacerbations in the past. Outpatient basis. Does not utilize any formal maintenance as per medication. He is not oxygen dependent. He has chronic exertional dyspnea. No angina. No swelling lower extremities. No nausea or vomiting. No altered mentation. The patient is currently in for an acute COPD exacerbation. Chest x-ray is consistent with COPD. Cardiac as above and negative.. The BNP level was nonelevated.no leukocytosis. INR is 4.4. Current and accommodation with Zithromax. The patient is also on DuoNeb and IV Solu Medrol. Clinically feeling better and less short of breath compared to yesterday. Review of Systems Constitutional: Denies chills, Denies fever Eyes: denies as per HPI, denies blurred vision, denies bulging eye, denies decreased vision, denies diplopia, denies discharge, denies dry eye, denies irritation, denies itching, denies pain, denies photophobia, denies loss of peripheral vision, denies loss of vision, denies tunnel vision/blind spots Ears: deny: decreased hearing, ear discharge, earache, tinnitus Ears, nose, mouth and throat: Denies headache, Denies sore throat Cardiovascular: Reports dyspnea on exertion Respiratory: Reports cough, Reports dyspnea, Reports wheezing Gastrointestinal: Reports as per HPI Genitourinary: Reports as per HPI Musculoskeletal: Reports as per HPI Musculoskeletal: absent: ankle pain, ankle stiffness, ankle swelling, as per HPI , elbow pain, elbow stiffness, elbow swelling, foot pain, foot stiffness, foot swelling, hand pain, hand stiffness, hand swelling, hip pain, hip stiffness, hip swelling, knee pain, knee stiffness, knee swelling, shoulder pain, shoulder stiffness, shoulder swelling, wrist pain, wrist stiffness, wrist swelling Integumentary: Reports as per HPI Neurological: Reports as per HPI Psychiatric: Reports as per HPI Endocrine: Reports as per HPI Hematologic/Lymphatic: Reports as per HPI Allergic/Immunologic: Reports as per HPI Past Medical History Past Medical History: COPD, Deep Vein Thrombosis (DVT), Hyperlipidemia, Vascular Disorder Additional Past Medical History / Comment(s): HX DVT left leg. History of Any Multi-Drug Resistant Organisms: None Reported Past Surgical History: Ear Surgery, Orthopedic Surgery Additional Past Surgical History / Comment(s): LT EAR SURG; RT KNEE SURG; DRAKE CATARACTS. CERVICAL AND SPINAL FUSIONS. FEM-POP BYPASS LT LEG X2. Past Anesthesia/Blood Transfusion Reactions: No Reported Reaction Past Psychological History: Anxiety, Depression Smoking Status: Current every day smoker Past Alcohol Use History: None Reported Past Drug Use History: None Reported - Past Family History Mother Family Medical History: Cancer Additional Family Medical History / Comment(s): UTERINE CANCER Father Family Medical History: Pneumonia Additional Family Medical History / Comment(s): Gastric ulcer Medications and Allergies Home Medications Medication Instructions Recorded Confirmed Type Simvastatin 20 mg PO HS 04/22/14 03/15/18 History Warfarin Sodium 2.5 mg PO SUFRSA 04/22/14 03/15/18 History Warfarin Sodium 4 mg PO MOTUWETH 04/22/14 03/15/18 History Albuterol Inhaler [Ventolin Hfa 1 - 2 puff INHALATION RT-Q6H PRN 09/15/15 History Inhaler] Gabapentin [Neurontin] 800 mg PO TID 09/15/15 03/15/18 History DULoxetine HCL [Cymbalta] 30 mg PO DAILY 03/15/18 03/15/18 History hydrOXYzine HCL 10 mg PO HS PRN 03/15/18 03/15/18 History oxyCODONE HCL/ACETAMINOPHEN 1 tab PO QID 03/15/18 03/15/18 History [Percocet 10-325 mg] Allergies Allergy/AdvReac Type Severity Reaction Status Date / Time No Known Allergies Allergy Verified 03/15/18 11:48 Physical Exam Vitals: Vital Signs Temp Pulse Pulse Resp BP BP Pulse Ox 03/16/18 13:47 97.1 F L 53 L 16 124/65 96 03/16/18 11:33 97.0 F L 63 16 118/61 96 03/16/18 09:24 62 03/16/18 09:08 62 03/16/18 08:41 97.6 F 52 L 16 123/72 98 03/16/18 08:00 52 L 03/16/18 05:02 97.6 F 54 L 18 122/67 98 03/16/18 00:00 43 L 18 03/15/18 22:24 97.8 F 62 18 114/64 99 03/15/18 21:50 60 03/15/18 21:34 54 L 97 03/15/18 17:11 98 F 16 123/65 98 03/15/18 16:13 98.5 F 75 18 113/75 96 03/15/18 15:43 70 16 03/15/18 15:34 77 18 Intake and Output 03/15/18 03/16/18 03/16/18 22:59 06:59 14:59 Intake Total 420 240 600 Balance 420 240 600 Intake: Oral 420 240 600 Other: # Voids 2 2 GENERAL: This is a 62-year-old male in no apparent distress at the time of my examination. HEENT: Head is atraumatic, normocephalic. Pupils are equal, round. Sclerae anicteric. Conjunctivae are clear. Mucous membranes of the mouth are moist. Neck is supple. There is no jugular venous distention. No carotid bruit is heard. LUNGS: Clear to auscultation no wheezes, rales or rhonchi. No chest wall tenderness is noted on palpation or with deep breathing. Diminished bilaterally. HEART: Regular rate and rhythm without murmurs, rubs or gallops. S1 and S2 heard. ABDOMEN:Abdominal exam revealed normal bowel sounds. The abdomen was soft, non- tender, and without masses, organomegaly, or appreciable enlargement of the abdominal aorta. EXTREMITIES: No evidence of peripheral edema and no calf tenderness noted. VASCULAR: Radial and dorsalis pedis pulses palpated, no evidence of clubbing. NEUROLOGIC: Patient is awake, alert and oriented x3. Examination of the skin revealed no evidence of significant rashes, suspicious appearing nevi or other concerning lesions. Results - Laboratory Findings CBC and BMP: 03/16/18 07:12 03/16/18 07:12 PT/INR, D-dimer PT 42.5 sec (9.0-12.0) H 03/16/18 07:12 INR 4.4 (<1.2) H 03/16/18 07:12 Abnormal lab findings: Abnormal Labs 03/15/18 03/15/18 03/15/18 11:30 11:30 11:30 RBC 4.20 L Hgb Hct Lymphocytes # PT INR APTT Chloride 108 H BUN 21 H Glucose 103 H POC Glucose (mg/dL) ALT Total Creatine Kinase 344 H Total Protein 03/15/18 03/16/18 03/16/18 11:30 07:12 07:12 RBC 3.87 L Hgb 12.3 L Hct 37.7 L Lymphocytes # 0.9 L PT 44.6 H 42.5 H INR 4.6 H 4.4 H APTT 40.7 H Chloride BUN Glucose POC Glucose (mg/dL) ALT Total Creatine Kinase Total Protein 03/16/18 03/16/18 07:12 11:31 RBC Hgb Hct Lymphocytes # PT INR APTT Chloride BUN Glucose 210 H POC Glucose (mg/dL) 247 H ALT 17 L Total Creatine Kinase Total Protein 6.2 L - Diagnostic Findings Chest x-ray: image reviewed Assessment and Plan Plan: assessment 1 acute COPD exacerbation with secondary shortness of breath 2 smoker 3 atypical chest pain without any EKG changes or abnormal cardiac enzymes. 4 hyperlipidemia 5 previous history of a left lower extremity DVT maintained on anticoagulation with warfarin with a subtherapeutic PT/INR Plan fully agree on the current treatment. Would optimize COPD exacerbation. Chest x-ray is not showing any acute abnormalities. Anticipate recovery. Outpatient PFT to assess the severity of COPD. Smoking cessation counseling was done. We' ll continue to follow.
[2018-03-16 17:15] LABS: Glucose,Whole Blood 197 mg/dL (75-99)
[2018-03-16] MEDS: ATORVASTATIN 10 MG TAB PO SCH (21:14)
[2018-03-16 21:16] LABS: Glucose,Whole Blood 258 mg/dL (75-99)
[2018-03-17] MEDS: methylPREDNISolone SOD SUCCI 125 MG/2 ML VIAL IV SCH ×3 (00:38→12:54)
[2018-03-17] MEDS: oxyCODONE-APAP 10-325MG 1 EACH TAB PO PRN ×2 (03:21→09:08)
[2018-03-17 07:39] LABS: Glucose,Whole Blood 224 mg/dL (75-99)
[2018-03-17] MEDS: AZITHROMYCIN 500 MG TAB PO SCH (08:31)
[2018-03-17] MEDS: DULoxetine HCL 30 MG CAPSULE.DR PO SCH (08:31)
[2018-03-17] MEDS: guaiFENesin 600 MG TABLET.ER PO SCH (08:31)
[2018-03-17] MEDS: GABAPENTIN 400 MG CAP PO SCH (08:31)
[2018-03-17] MEDS: INSULIN ASPART (NovoLOG) 100 UNIT/ML VIAL SQ SCH ×2 (08:32→13:12)
[2018-03-17] MEDS ORDERED: SODIUM CHLORIDE 0.9% 50 ML BAG ONE (09:00)
[2018-03-17] MEDS ORDERED: cefTRIAXone 1 GM VIAL ONE (09:00)
--- NOTE | 2018-03-17 10:09 | ECHOF ---
Referral Reason:cp MEASUREMENTS -------- HEIGHT: 185.4 cm WEIGHT: 86.2 kg BP: 123/72 RVIDd: 2.3 cm (< 3.3) IVSd: 0.8 cm (0.6 - 1.1) LVIDd: 5.3 cm (3.9 - 5.3) LVPWd: 0.8 cm (0.6 - 1.1) IVSs: 1.1 cm LVIDs: 3.8 cm LVPWs: 1.1 cm LAESV Index (A-L): 10.48 ml/m Ao Diam: 3.4 cm (2.0 - 3.7) AV Cusp: 1.7 cm (1.5 - 2.6) LA Diam: 3.1 cm (2.7 - 3.8) MV E Jaleel: 0.92 m/s MV DecT: 281 ms MV A Jaleel: 0.73 m/s MV E/A Ratio: 1.28 FINDINGS -------- Sinus rhythm. This was a technically adequate study. The left ventricular size is normal. Left ventricular wall thickness is normal. Overall left vent ricular systolic function is normal with, an EF between 55 - 60 %. The right ventricle is normal in size and function. Normal LA size by volume 22+/-6 ml/m2. The right atrium is normal in size. There is mild aortic valve sclerosis. There is no evidence of aortic regurgitation. There is no e vidence of aortic stenosis. Mild mitral annular calcification present. There is trace to mild mitral regurgitation. Trace tricuspid regurgitation present. Right ventricular systolic pressure is normal at < 35 mmHg. There is no evidence of pulmonary hypertension. The pulmonic valve was not well visualized. The aortic root size is normal. Normal inferior vena cava with normal inspiratory collapse consistent with estimated right atrial pre ssure of 5 mmHg. There is a small, generalized pericardial effusion present. CONCLUSIONS -------- 1. Sinus rhythm. 2. This was a technically adequate study. 3. The left ventricular size is normal. 4. Left ventricular wall thickness is normal. 5. Overall left ventricular systolic function is normal with, an EF between 55 - 60 %. 6. Normal LA size by volume 22+/-6 ml/m2. 7. There is mild aortic valve sclerosis. 8. Mild mitral annular calcification present. 9. There is trace to mild mitral regurgitation. 10. Trace tricuspid regurgitation present. 11. Right ventricular systolic pressure is normal at < 35 mmHg. 12. There is no evidence of pulmonary hypertension. 13. The pulmonic valve was not well visualized. 14. The aortic root size is normal. 15. There is a small, generalized pericardial effusion present. CRITICAL CARE TECHNICIAN: Chan Gibbs RDCS
[2018-03-17 10:22] LABS: Basophils % (A) 0 %; Eosinophils % (A) 0 %; HCT 39.6 % (39.0-53.0); HGB 12.6 gm/dL (13.0-17.5); Lymphocytes # (A) 0.9 k/uL (1.0-4.8); Lymphocytes % (A) 7 %; MCH 31.1 pg (25.0-35.0); MCHC 31.8 g/dL (31.0-37.0); MCV 97.8 fL (80.0-100.0); Mean Platelet Volume 9.3; Monocytes # (A) 0.4 k/uL (0-1.0); Monocytes % (A) 3 %; Neutrophils # (A) 11.9 k/uL (1.3-7.7); Neutrophils % (A) 90 %; Platelet Count 219 k/uL (150-450); RBC 4.05 m/uL (4.30-5.90); RDW 13.5 % (11.5-15.5); WBC 13.3 k/uL (3.8-10.6)
[2018-03-17 10:27] LABS: INR 3.6 (<1.2); Prothrombin Time 34.9 sec (9.0-12.0)
--- NOTE | 2018-03-17 10:27 | P.PN ---
Subjective This is a pleasant 62-year-old male past medical history significant for COPD, DVT on long-term anticoagulation, dyslipidemia, chronic nicotine dependence and peripheral vascular disease. He denies history of hypertension, diabetes mellitus or coronary artery disease. We have been asked to see him in consultation for chest pain. He presented to the hospital yesterday morning with symptoms of shortness of breath and productive cough times one week. He states he is bringing up significant amount of yellow sputum. He also describes pleuritic chest discomfort when he coughs or takes a deep breath. He denies exertional chest discomfort, palpitations or dizziness. He denies radiation of the pain to his back, neck, jaw or arm. He is seen and examined laying flat resting comfortably in bed in no acute distress. He has been diagnosed with an acute exacerbation of chronic COPD started on antibiotics, nebulizers and IV steroids. Echocardiogram obtained reveals preserved LV systolic function with EF 55-60% with small generalized pericardia effusion noted. Labs are pending for today. He is seen and examined sitting up in bed in no acute. He denies any further symptoms of chest pain. He states his breathing overall feels better, however he felt short of breath again this morning while using the bathroom. No chest pain at that time. GENERAL: This is a 62-year-old male in no apparent distress at the time of my examination. HEENT: Head is atraumatic, normocephalic. Pupils are equal, round. Sclerae anicteric. Conjunctivae are clear. Mucous membranes of the mouth are moist. Neck is supple. There is no jugular venous distention. No carotid bruit is heard. LUNGS: Clear to auscultation no wheezes, rales or rhonchi. No chest wall tenderness is noted on palpation or with deep breathing. Diminished bilaterally. HEART: Regular rate and rhythm without murmurs, rubs or gallops. S1 and S2 heard. EXTREMITIES: No evidence of peripheral edema and no calf tenderness noted. ASSESSMENT Pleuritic chest pain. Atypical for angina. An acute coronary event has been ruled out with no EKG evidence of ischemia negative cardiac enzymes. Acute exacerbation of chronic COPD Dyslipidemia History of DVT on long-term anticoagulation with Coumadin Supratherapeutic INR Chronic nicotine dependence PLAN Check ESR and CRP. INR pending for today. Ongoing medical management of COPD exacerbation. Increase activity and ambulation as tolerated. Overall he is stable from a cardiac perspective. The above impression and plan of care have been discussed and directed by the signing physician. Verónica Francis, nurse practitioner, acting as scribe for signing physician. Objective - Vital Signs Vital signs: Vital Signs Temp 98.1 F 03/17/18 07:59 Pulse 68 03/17/18 07:59 Resp 16 03/17/18 07:59 BP 142/70 03/17/18 07:59 Pulse Ox 97 03/17/18 05:00 Intake & Output 03/16/18 03/17/18 03/17/18 18:59 06:59 18:59 Intake Total 600 570 Balance 600 570 Intake: Intake, IV Titration 150 Amount cefTRIAXone 1,000 mg In 150 Sodium Chloride 0.9% 50 ml @ 100 mls/hr IVPB Q24HR [facility] Rx#:[id number] Oral 600 420 Other: Voiding Method Toilet # Voids 2 2 - Labs CBC & Chem 7: 03/16/18 07:12 03/16/18 07:12 Labs: Abnormal Lab Results - Last 24 Hours (Table) 03/16/18 03/16/18 03/16/18 Range/Units 11:31 17:14 21:15 POC Glucose (mg/dL) 247 H 197 H 258 H (75-99) mg/dL 03/17/18 Range/Units 07:38 POC Glucose (mg/dL) 224 H (75-99) mg/dL Microbiology - Last 24 Hours (Table) 03/15/18 11:44 Blood Culture - Preliminary Blood No Growth after 24 hours
[2018-03-17] MEDS: IPRATROPIUM-ALBUTEROL 3 ML NEB INHALATION SCH ×2 (10:31→10:45)
[2018-03-17 10:45] LABS: ALT 22 U/L (21-72); AST 24 U/L (17-59); Albumin 3.6 g/dL (3.5-5.0); Alkaline Phosphatase 50 U/L (38-126); Anion Gap 11 mmol/L; Blood Urea Nitrogen 15 mg/dL (9-20); C Reactive Protein 19.3 mg/L (<10.0); Calcium 8.7 mg/dL (8.4-10.2); Carbon Dioxide 22 mmol/L (22-30); Chloride 106 mmol/L (98-107); Glucose 242 mg/dL (74-99); Potassium 3.7 mmol/L (3.5-5.1); Sodium 139 mmol/L (137-145); Total Bilirubin 0.4 mg/dL (0.2-1.3); Total Protein 6.2 g/dL (6.3-8.2)
[2018-03-17 11:09] VITALS: BP 130/69; RESP 15; TEMP 97.6
[2018-03-17 11:16] VITALS: PULSE 71
[2018-03-17 11:44] LABS: Glucose,Whole Blood 298 mg/dL (75-99)
[2018-03-17] MEDS ORDERED: COLCHICINE 0.6 MG EACH PO SCH (12:15)
--- NOTE | 2018-03-17 13:01 | P.DS ---
Providers Date of admission: 03/15/18 13:19 Expected date of discharge: 03/17/18 Attending physician: Bernabe Henson Consults: 03/15/18 15:03 Consult Physician Routine Consulting Provider: Judy Luna Consult Reason/Comments: COPD Do you want consulting provider notified?: Yes Consult Physician Routine Consulting Provider: Aurora Obrien Consult Reason/Comments: chest pain Do you want consulting provider notified?: Yes Primary care physician: Mariluz Rainey Hospital Course: Discharge diagnosis #1 acute exacerbation of chronic obstructive pulmonary disease #2 acute purulent bronchitis #3 episodes of chest tightness, with normal EKG and normal first troponin #4 underlying history of degenerative disc disease was previous history of back surgery maintained on narcotic for pain management #5 underlying history of hyperlipidemia #6 previous history of DVT and PE patient is maintained on Coumadin his INR is elevated at 4.6 #7 tobacco abuse patient was counseled regarding smoking cessation counseling 1- 3 minutes #8 underlying history of peripheral vascular disease with previous history of left lower extremity femoral popliteal bypass graft surgery Cardiology services an acute coronary event has been ruled out. 2-D echo completed showing overall left tracheal systolic function and normal limits with an EF between 55%-60% Patient has been cleared for discharge from pulmonary services. Patient will be DC'd home on Ceftin for 7 more days, prednisone taper and DuoNeb nebulized breathing treatments. Patient's Coumadin dose changed to 2.5 mg daily due to separate therapeutic. INR today 3.6. Patient advised that he will need close monitoring every Tuesday and Tuesday for 3 weeks until therapeutic. Patient advised to follow-up closely with PCP for further management Hospital course Feilce Chang, he is a 62-year-old male patient of Dr. Mariluz Rainey who presented to [facility] emergency room with a chief complaint of worsening shortness of breath. Patient stated that about 1 week ago he developed an upper respiratory infection, he stayed in bed and try to medicate himself, he developed worsening cough with yellow sputum production, and started having worsening shortness of breath, he decided to see Dr. Rainey today however his shortness of breath worsened and he decided to come to emergency room. Patient was also complaining of chest tightness. Patient states that he has a known history of COPD for which she uses an inhaler , he is a lifelong smoker, he states that he has not seen any lung doctor in the past, he has known history of DVT and pulmonary embolism in the past, he is maintained on Coumadin, his INR was elevated at 4.6 at the time of admission. He denies any cardiac history in the past no history of myocardial infarction or congestive heart. He denies any previous history of diabetes kidney disease or liver disease. He denies drinking alcohol or using any kind of illicit drugs. 03/16/2017 patient is alert and oriented 3. Patient does state improvement with shortness of breath from yesterday. At this time patient is still having cough that is nonproductive. Patient denies nausea or vomiting. Patient denies chest pain. Patient denies any urinary burning or frequency. Pulmonary and cardiology services are following. On 03/17/2017 patient is alert and oriented 3. Patient has been up and ambulate halls without oxygen. Patient is very anxious to go home. Patient has been cleared by pulmonary services. Patient also requiring nebulized breathing treatment time. Patient will be discharged home on prednisone taper, Ceftin antibiotic and DuoNeb breathing treatments. Patient's Coumadin dose will also be decreased to 2.5 mg daily due to separate therapeutic INR. Patient educated on the importance of close monitoring. Patient to have INR checked Tuesday and Tuesday for 3 weeks therapeutic At this time patient denies chest pain or shortness breath. Patient denies nausea vomiting or diarrhea. Patient denies any urinary burning or frequency I performed an examination of the patient and discussed their management with the Nurse Practitioner. I have reviewed the Nurse Practitioner's notes and agree with the documented findings and plan of care Patient Condition at Discharge: Stable Plan - Discharge Summary Discharge Rx Participant: No New Discharge Prescriptions: New Colchicine [Colcrys] 0.6 mg PO BID #10 each Ipratropium-Albuterol Nebulize [Duoneb 0.5 mg-3 mg/3 ml Soln] 3 ml INHALATION Q4H PRN #30 ampul.neb PRN Reason: Shortness Of Breath Or Wheezing Cefuroxime Axetil [Ceftin] 500 mg PO BID 7 Days #14 tab predniSONE 10 mg PO DIRECTED #30 tab Warfarin [Coumadin] 2.5 mg PO DAILY 30 Days #30 tab Continue Simvastatin 20 mg PO HS Gabapentin [Neurontin] 800 mg PO TID Albuterol Inhaler [Ventolin Hfa Inhaler] 1 - 2 puff INHALATION RT-Q6H PRN PRN Reason: Shortness Of Breath hydrOXYzine HCL 10 mg PO HS PRN PRN Reason: Anxiety DULoxetine HCL [Cymbalta] 30 mg PO DAILY oxyCODONE HCL/ACETAMINOPHEN [Percocet 10-325 mg] 1 tab PO QID Discontinued Warfarin Sodium 2.5 mg PO SUFRSA Warfarin Sodium 4 mg PO MOTUWETH Discharge Medication List Simvastatin 20 mg PO HS 04/22/14 [History] Albuterol Inhaler [Ventolin Hfa Inhaler] 1 - 2 puff INHALATION RT-Q6H PRN [History] Gabapentin [Neurontin] 800 mg PO TID 09/15/15 [History] DULoxetine HCL [Cymbalta] 30 mg PO DAILY 03/15/18 [History] hydrOXYzine HCL 10 mg PO HS PRN 03/15/18 [History] oxyCODONE HCL/ACETAMINOPHEN [Percocet 10-325 mg] 1 tab PO QID 03/15/18 [History] Cefuroxime Axetil [Ceftin] 500 mg PO BID 7 Days #14 tab 03/17/18 [Rx] Colchicine [Colcrys] 0.6 mg PO BID #10 each 03/17/18 [Rx] Ipratropium-Albuterol Nebulize [Duoneb 0.5 mg-3 mg/3 ml Soln] 3 ml INHALATION Q4H PRN #30 ampul.neb 03/17/18 [Rx] Warfarin [Coumadin] 2.5 mg PO DAILY 30 Days #30 tab 03/17/18 [Rx] predniSONE 10 mg PO DIRECTED #30 tab 03/17/18 [Rx] Follow up Appointment(s)/Referral(s): [facility], [NON-STAFF] - 1 Week Mariluz Rainey DO [Primary Care Provider] - 1-2 days Channing Reilly MD [STAFF PHYSICIAN] - 03/30/18 1:30 pm Ambulatory/Diagnostic Orders: Prothrombin Time INR [LAB.AMB] Time Frame: 3 Days, Location: None Selected Prothrombin Time INR [LAB.AMB] Time Frame: 6 Days, Location: None Selected Activity/Diet/Wound Care/Special Instructions: Activity as tolerated Diet heart healthy Patient's Coumadin dose changed to 2.5 mg daily due to suppressed therapeutic INR upon arrival to ER. Patient to have INR checked Tuesday and Tuesday for 3 weeks until therapeutic. Patient educated on importance of close monitoring with PCP. Discharge Disposition: HOME SELF-CARE
--- NOTE | 2018-03-17 17:34 | P.PN ---
Subjective Progress Note Date: 03/17/18 69-year-old male patient was being seen in follow-up regarding his acute COPD exacerbation. He is doing very well. No specific complaints. Overall pulmonary status improved. No cough sputum production chest masses or wheezing. I think I'm going to clear this patient for discharge to Follow up on outpatient basis. Objective - Vital Signs Vital signs: Vital Signs Temp 97.6 F 03/17/18 11:07 Pulse 71 03/17/18 11:15 Resp 15 03/17/18 11:07 BP 130/69 03/17/18 11:07 Pulse Ox 93 L 03/17/18 11:15 Intake & Output 03/16/18 03/17/18 03/17/18 18:59 06:59 18:59 Intake Total 600 570 Balance 600 570 Intake: Intake, IV Titration 150 Amount cefTRIAXone 1,000 mg In 150 Sodium Chloride 0.9% 50 ml @ 100 mls/hr IVPB Q24HR SHERON Rx#:[id number] Oral 600 420 Other: Voiding Method Toilet Toilet # Voids 2 2 - Exam The patient appeared well nourished and normally developed. Vital signs as documented. Head exam is unremarkable. No scleral icterus or corneal arcus noted. Neck is without jugular venous distension, thyromegaly, or carotid bruits. Carotid upstrokes are brisk bilaterally. Lungs are clear to auscultation and percussion. Cardiac exam reveals the PMI to be normally sized and situated. Rhythm is regular. First and second heart sounds normal. No murmurs, rubs or gallops. Abdominal exam reveals normal bowel sounds, no masses , no organomegaly and no aortic enlargement. Extremities are nonedematous and both femoral and pedal pulses are normal. - Labs CBC & Chem 7: 03/17/18 09:57 03/17/18 09:57 Labs: Abnormal Lab Results - Last 24 Hours (Table) 03/16/18 03/17/18 03/17/18 Range/Units 21:15 07:38 09:57 WBC 13.3 H (3.8-10.6) k/uL RBC 4.05 L (4.30-5.90) m/uL Hgb 12.6 L (13.0-17.5) gm/dL Neutrophils # 11.9 H (1.3-7.7) k/uL Lymphocytes # 0.9 L (1.0-4.8) k/uL ESR (0-15) mm/hr PT (9.0-12.0) sec INR (<1.2) Glucose (74-99) mg/dL POC Glucose (mg/dL) 258 H 224 H (75-99) mg/dL C-Reactive Protein (<10.0) mg/L Total Protein (6.3-8.2) g/dL 03/17/18 03/17/18 03/17/18 Range/Units 09:57 09:57 09:57 WBC (3.8-10.6) k/uL RBC (4.30-5.90) m/uL Hgb (13.0-17.5) gm/dL Neutrophils # (1.3-7.7) k/uL Lymphocytes # (1.0-4.8) k/uL ESR 33 H (0-15) mm/hr PT 34.9 H (9.0-12.0) sec INR 3.6 H (<1.2) Glucose 242 H (74-99) mg/dL POC Glucose (mg/dL) (75-99) mg/dL C-Reactive Protein 19.3 H (<10.0) mg/L Total Protein 6.2 L (6.3-8.2) g/dL 03/17/18 Range/Units 11:43 WBC (3.8-10.6) k/uL RBC (4.30-5.90) m/uL Hgb (13.0-17.5) gm/dL Neutrophils # (1.3-7.7) k/uL Lymphocytes # (1.0-4.8) k/uL ESR (0-15) mm/hr PT (9.0-12.0) sec INR (<1.2) Glucose (74-99) mg/dL POC Glucose (mg/dL) 298 H (75-99) mg/dL C-Reactive Protein (<10.0) mg/L Total Protein (6.3-8.2) g/dL Microbiology - Last 24 Hours (Table) 03/15/18 11:44 Blood Culture - Preliminary Blood No Growth after 48 hours 03/15/18 23:45 Gram Stain - Preliminary Sputum Sputum Culture - Preliminary Assessment and Plan Plan: assessment 1 acute COPD exacerbation with secondary shortness of breath, recovered 2 smoker 3 atypical chest pain without any EKG changes or abnormal cardiac enzymes. 4 hyperlipidemia 5 previous history of a left lower extremity DVT maintained on anticoagulation with warfarin with a subtherapeutic PT/INR Plan Treated for discharge from a pulmonary standpoint he had this checked in a prednisone burst taper. Follow-up in my office in a week's time for a full pulmonary function test evaluation. He will be given a course of Ceftin, prednisone burst taper and albuterol HFA to be used when necessary.
== END 2018-03-17 14:50 | disposition home or self-care (01) ==
LOC: EC 11:22 → INTOOBSV 13:19 → 4MS4W 13:19 → 3NMEDONC 15:26 → UNDODISIN 03-17 14:50
PROVIDERS: ADMIT Internal Medicine; ATTEND Internal Medicine
DX: J44.1 Chronic obstructive pulmonary disease with (acute) exacerbation (principal); J44.0 Chronic obstructive pulmonary disease with (acute) lower respiratory infection; J20.9 Acute bronchitis, unspecified; R07.89 Other chest pain; R79.1 Abnormal coagulation profile; E78.5 Hyperlipidemia, unspecified; I73.9 Peripheral vascular disease, unspecified; F32.9 Major depressive disorder, single episode, unspecified; F41.9 Anxiety disorder, unspecified; F17.210 Nicotine dependence, cigarettes, uncomplicated; Z79.01 Long term (current) use of anticoagulants; Z79.891 Long term (current) use of opiate analgesic; Z79.899 Other long term (current) drug therapy; Z86.711 Personal history of pulmonary embolism; Z86.718 Personal history of other venous thrombosis and embolism; Z98.42 Cataract extraction status, left eye; Z98.41 Cataract extraction status, right eye; Z98.1 Arthrodesis status; Z95.828 Presence of other vascular implants and grafts; Z80.49 Family history of malignant neoplasm of other genital organs; Z23 Encounter for immunization
CPT/HCPCS: 96376 ×3; 96365; 96375; 99285; 36415; 94640 ×6; 93005; 93306; 83880; 80053 ×3; 85652; 82550; 82553; 83605; 83735; 84484; 85025 ×3; 85610 ×3; 85730; 86140; 87040; 87070; 87205; 71046; 90732; G0378 ×3; G0009; J2930 ×3; J0696 ×3; 96374

== ENCOUNTER 2021-03-06 18:15 | Emergency (ER) | payer OTHER ==
[2021-03-06] MEDS ORDERED: ACETAMINOPHEN TAB 500 MG TAB PO STA (18:46)
--- NOTE | 2021-03-06 19:02 | ED ---
General Adult HPI - General Chief complaint: Shortness of Breath Stated complaint: flulike symptoms, covid exposure Time Seen by Provider: 03/06/21 18:26 Source: patient, RN notes reviewed, old records reviewed Mode of arrival: wheelchair Limitations: no limitations - History of Present Illness Initial comments: 65-year-old male presenting for evaluation of fever, chills, mild abdominal discomfort and nausea. Patient is uncertain if he is coming contact with coronavirus. He has not had any significant cough or dyspnea. He has not taken any medicine for his fever. Symptoms have been present for the past 3 days. He is unvaccinated against coronavirus. He has been eating and drinking. - Related Data Home Medications Medication Instructions Recorded Confirmed Simvastatin 20 mg PO HS 04/22/14 03/15/18 Albuterol Inhaler (Mhu) [Ventolin 1 - 2 puff INHALATION RT-Q6H PRN 09/15/15 03/15/18 Hfa Inhaler (Mhu)] Gabapentin [Neurontin] 800 mg PO TID 09/15/15 03/15/18 DULoxetine HCL [Cymbalta] 30 mg PO DAILY 03/15/18 03/15/18 hydrOXYzine HCL 10 mg PO HS PRN 03/15/18 03/15/18 oxyCODONE HCL/ACETAMINOPHEN 1 tab PO QID 03/15/18 03/15/18 [Percocet 10-325 mg] Previous Rx's Medication Instructions Recorded Cefuroxime Axetil [Ceftin] 500 mg PO BID 7 Days #14 tab 03/17/18 Colchicine [Colcrys] 0.6 mg PO BID #10 each 03/17/18 Ipratropium-Albuterol Nebulize 3 ml INHALATION Q4H PRN #30 03/17/18 [Duoneb 0.5 mg-3 mg/3 ml Soln] ampul.neb Warfarin [Coumadin] 2.5 mg PO DAILY 30 Days #30 tab 03/17/18 predniSONE 10 mg PO DIRECTED #30 tab 03/17/18 Allergies Allergy/AdvReac Type Severity Reaction Status Date / Time No Known Allergies Allergy Verified 03/06/21 18:23 Review of Systems ROS Statement: Those systems with pertinent positive or pertinent negative responses have been documented in the HPI. ROS Other: All systems not noted in ROS Statement are negative. Past Medical History Past Medical History: COPD, Deep Vein Thrombosis (DVT), Hyperlipidemia, Vascular Disorder Additional Past Medical History / Comment(s): HX DVT left leg. History of Any Multi-Drug Resistant Organisms: None Reported Past Surgical History: Ear Surgery, Orthopedic Surgery Additional Past Surgical History / Comment(s): LT EAR SURG; RT KNEE SURG; DRAKE CATARACTS. CERVICAL AND SPINAL FUSIONS. FEM-POP BYPASS LT LEG X2. Past Anesthesia/Blood Transfusion Reactions: No Reported Reaction Past Psychological History: Anxiety, Depression Smoking Status: Current every day smoker Past Alcohol Use History: None Reported Past Drug Use History: None Reported - Past Family History Mother Family Medical History: Cancer Additional Family Medical History / Comment(s): UTERINE CANCER Father Family Medical History: Pneumonia Additional Family Medical History / Comment(s): Gastric ulcer General Exam Limitations: no limitations General appearance: alert, in no apparent distress Head exam: Present: atraumatic, normocephalic Eye exam: Present: normal appearance, PERRL ENT exam: Present: mucous membranes moist Neck exam: Present: normal inspection. Absent: tenderness, meningismus Respiratory exam: Present: normal lung sounds bilaterally. Absent: respiratory distress, wheezes, rhonchi Cardiovascular Exam: Present: regular rate, normal rhythm GI/Abdominal exam: Present: soft. Absent: distended, tenderness, guarding Extremities exam: Present: normal inspection, normal capillary refill. Absent: pedal edema Neurological exam: Present: alert, oriented X3, motor sensory deficit. Absent: CN II-XII intact Psychiatric exam: Present: normal affect, normal mood Skin exam: Present: warm, dry, intact. Absent: cyanosis, diaphoretic Course Vital Signs 03/06/21 03/06/21 18:21 18:30 Temperature 101.5 F H Pulse Rate 85 Respiratory 22 Rate Blood Pressure 141/91 O2 Sat by Pulse 94 L 97 Oximetry Medical Decision Making - Medical Decision Making 65-year-old male who is on vaccinated against coronavirus who presented with symptoms concerning for coronavirus. He does test positive. He is a candidate for monoclonal antibodies. These are transfusing the emergency department. He has no associated dyspnea. He is breathing room air without respiratory distress or tachypnea. Oxygenation is within normal limits. He's given strict return parameters. He is instructed take vitamin C, vitamin D and zinc. He will monitor symptoms at home and return with worsening or changing symptoms. He will follow with his primary care physician. - Lab Data Lab Results 03/06/21 Range/Units 18:30 Coronavirus (PCR) Detected A (Not Detectd) Disposition Clinical Impression: COVID-19 Disposition: HOME SELF-CARE Condition: Fair Instructions (If sedation given, give patient instructions): Coronavirus Disease 2019 (COVID-19) Additional Instructions: Please take [id number] vitamin C, vitamin D and syncope. Please return with any respiratory issues. Is patient prescribed a controlled substance at d/c from ED?: No Referrals: Nonstaff,Physician [Primary Care Provider] - 1-2 days Shlomo Wick [STAFF PHYSICIAN] - 1-2 days Time of Disposition: 19:01
[2021-03-06] MEDS ORDERED: SODIUM CHLORIDE 0.9% 50 ML IVPB ONE (19:30)
[2021-03-06] MEDS ORDERED: SOTROVIMAB (EUA) 500 MG in SODIUM CHLORIDE 0.9% 100 ML IVPB ONE (19:30)
[2021-03-06 21:38] VITALS: BP 120/82; PULSE 57; RESP 20; TEMP 98.6
== END 2021-03-06 21:40 | disposition home or self-care (01) ==
LOC: EC 18:15
DX: U07.1 COVID-19 (principal); J44.9 Chronic obstructive pulmonary disease, unspecified; E78.5 Hyperlipidemia, unspecified; F41.9 Anxiety disorder, unspecified; F32.A Depression, unspecified; F17.200 Nicotine dependence, unspecified, uncomplicated; Z79.01 Long term (current) use of anticoagulants; Z86.718 Personal history of other venous thrombosis and embolism
CPT/HCPCS: 87635; 96360; 99284

== ENCOUNTER 2022-06-22 19:08 | Emergency (ER) | payer MEDICARE, OTHER ==
[2022-06-22 19:42] VITALS: BP 162/103; PULSE 86; RESP 18; TEMP 99.5
--- NOTE | 2022-06-22 19:56 | XR ---
EXAMINATION TYPE: XR chest 2V DATE OF EXAM: 06/22/2022 COMPARISON: Chest x-ray November 01, 2019 HISTORY: Shortness of breath TECHNIQUE: Frontal and lateral views of the chest are obtained. FINDINGS: Background chronic emphysematous change is redemonstrated. There is no suspicious periphera l focal air space opacity, pleural effusion, or pneumothorax seen. The cardiac silhouette size is st able and within normal limits. Surgical change to the cervical spine is partially imaged. IMPRESSION: Chronic emphysematous change without acute pulmonary process.
== END 2022-06-22 20:20 | disposition left against medical advice (07) ==
LOC: EC 19:08
DX: R06.02 Shortness of breath (principal); Z20.822 Contact with and (suspected) exposure to COVID-19; Z53.21 Procedure and treatment not carried out due to patient leaving prior to being seen by health care provider
CPT/HCPCS: 71046; 87636; 99499

== ENCOUNTER → 2023-07-10 | Outpatient (CLI) | payer MEDICARE, OTHER ==
--- NOTE | 2023-07-10 11:50 | MR ---
EXAMINATION TYPE: MR brain wo/w con DATE OF EXAM: 07/10/2023 COMPARISON: None HISTORY: TIA last week TECHNIQUE: Multiplanar, multisequence images of the brain and brainstem is performed without and with IV contras t, utilizing 7.5 mL intravenous Gadavist . FINDINGS: On the T1-weighted sagittal images the midline structures including the craniovertebral junction rela tionships are normal. The ventricles, basal cisterns and sulci over convexities are mildly prominent. Unremarkable for the patient's age. There is mild to moderate scattered increased density in the periventricular white mat ter consistent with chronic ischemic white matter demyelination. . There are 2 remote lacunar infarct s in the right caudate nucleus and in the anterior limb of the right internal capsule. Based on diffusion-weighted imaging there is a small focal area of diffusion restriction in the left parietal white matter consistent with a small acute ischemic infarct. Based on susceptibility weighted imaging there is a small focal area of chronic hemorrhage in the pos terior right frontal lobe. Following contrast administration, there is no pathological enhancement throughout the brain parenchy ma. The posterior fossa including the brainstem, fourth ventricle and cerebellar pontine angles appear no rmal. The intraorbital contents. Normal symmetric. Visualized paranasal sinuses and mastoid air cells are well aerated. IMPRESSION: 1. Small focal acute ischemic white matter infarct in the left parietal white matter. 2. Mild to moderate chronic ischemic white matter changes and remote lacunar infarcts in the right ca udate and internal capsule. 3. Small focal area of remote hemorrhage in the posterior right frontal lobe. 4. No pathological enhancement throughout the brain parenchyma.
== END | disposition home or self-care (01) ==
LOC: RADMRIMAIN 09:58
PROVIDERS: ATTEND Family Medicine
DX: I67.82 Cerebral ischemia (principal); R58 Hemorrhage, not elsewhere classified; Z86.73 Personal history of transient ischemic attack (TIA), and cerebral infarction without residual deficits
CPT/HCPCS: 70553; A9585